=== PATIENT | male | born 1965 | race Caucasian/White ===

== ENCOUNTER → 2025-05-21 | Outpatient (CLI) | payer OTHER ==
--- NOTE | 2025-05-21 07:50 | US ---
EXAMINATION TYPE: US abdomen complete DATE OF EXAM: 05/21/2025 COMPARISON: NONE CLINICAL INDICATION: Male, 60 years old with history of B19.20 ABDOMINAL DISTENSION (GASEOUS); Abdomi nal distention with epigastric pain x 3 weeks. Daily smoker (1PPD) and drinker (3PD). Hx HTN; Patient denies any other signs, symptoms, or relevant history. TECHNIQUE: Grayscale and color Doppler imaging of the abdomen was performed. FINDINGS: EXAM MEASUREMENTS: Liver Length: 16.6 cm Gallbladder Wall: 0.3 cm CBD: 6.3 mm color Doppler imaging was utilized to isolate the common bile duct for measurement. Spleen: 13.4 cm Right Kidney: 11.3 x 4.2 x 5.4 cm Left Kidney: 11.9 x 6.1 x 5.9 cm TRAINING ADMINISTRATOR NOTES: Mild ascites seen all four quadrants Pancreas: Obscured by bowel gas Liver: Heterogeneous with nodular hepatic contour. Gallbladder: Distended with suggestion of sludge. Borderline wall thickness. Evidence for sonographic Holcomb's sign: No CBD: Borderline dilated. Spleen: Borderline enlarged. Right Kidney: wnl, No hydronephrosis, calculi or masses seen Left Kidney: wnl, No hydronephrosis, calculi or masses seen Upper IVC: Obscured by overlying bowel gas Abd Aorta: Obscured by overlying bowel gas IMPRESSION: 1. Cirrhotic morphology of the liver. Borderline splenomegaly and mild diffuse abdominal ascites sugg ests portal venous hypertension. GI referral if no established diagnosis. 2. Distended gallbladder with sludge. This may be due to fasting state. If concern for early acute ch olecystitis, HIDA scan can be considered. 3. Borderline dilated bile duct at 6.3 mm. This may be acceptable given patient's age. Correlate with alkaline phosphatase and bilirubin levels. [facility], Workstation: [id number], 05/21/2025 7:47 AM
== END | disposition home or self-care (01) ==
LOC: RADUSWWP 07:13
PROVIDERS: ATTEND Family Medicine
DX: B19.20 Unspecified viral hepatitis C without hepatic coma (principal); R14.0 Abdominal distension (gaseous); K76.89 Other specified diseases of liver; K82.8 Other specified diseases of gallbladder
CPT/HCPCS: 76700

== ENCOUNTER → 2025-05-25 | Outpatient (CLI) | payer OTHER ==
--- NOTE | 2025-05-25 14:42 | CT ---
EXAMINATION TYPE: CT abdomen w con CT DLP: 1467.8 mGycm, Automated exposure control for dose reduction was used. DATE OF EXAM: 05/25/2025 2:30 PM COMPARISON: Abdominal ultrasound 05/21/2025 CLINICAL INDICATION:Male, 60 years old with history of K74.60 UNSPECIFIED CIRRHOSIS OF LIVER; abnorma l LFT TECHNIQUE: Standard CT of the abdomen following the administration of 100 cc of Isovue 300 IV contr ast material and oral contrast. Coronal and sagittal reformats were performed. FINDINGS: LOWER CHEST: Trace left pleural effusion. Bibasilar linear scarring and/or atelectasis. Small coronar y calcifications. Small aortic valvular calcifications. Trace pericardial effusion. ABDOMEN LIVER: Cirrhotic morphology of liver with surface nodularity, widened fissures and posterior notch si gn. No focal lesion identified however arterial phase imaging was not obtained. GALLBLADDER AND BILE DUCTS: Hydropic gallbladder without wall thickening. No biliary ductal dilatatio n. PANCREAS: Unremarkable. SPLEEN: Top end normal-sized spleen measuring up to 13.8 cm in CC dimension. ADRENAL GLANDS: Unremarkable. KIDNEYS AND URETERS: No evidence of hydronephrosis or renal calculus. The kidneys enhance symmetrical ly. STOMACH AND BOWEL: Small hiatal hernia, duodenum is unremarkable. Enteric contrast reaches the mid sm all bowel. No focal bowel wall thickening or surrounding inflammatory changes. The visualized portion of the appendix is unremarkable. No evidence of bowel obstruction. PERITONEUM: No evidence of pneumoperitoneum. Moderate volume ascites throughout the abdomen. VASCULATURE: Mild atherosclerotic calcifications are present throughout the abdominal aorta and its b ranches. No evidence of aortic aneurysm. Paraesophageal varices. Perisplenic collateral vessels ident ified. Portal venous system is patent. MUSCULOSKELETAL: No acute osseous abnormalities. Grade 1 anterolisthesis of L4-L5 without evidence of pars defects. Moderate multilevel degenerative disc disease of the lower thoracic spine. LYMPH NODES: No evidence for lymphadenopathy. SOFT TISSUE/ABDOMINAL WALL: Anasarca changes around the umbilicus. IMPRESSION: 1. Hepatic cirrhosis with findings of portal hypertension including moderate volume ascites and colla teral vessels/varices. No focal hepatic lesion identified. 2. Hydropic gallbladder. 3. Trace left pleural effusion. [facility], , 05/25/2025 2:39 PM
== END | disposition home or self-care (01) ==
LOC: RADCTMAIN 13:23
PROVIDERS: ATTEND Family Medicine
DX: K74.60 Unspecified cirrhosis of liver (principal); J90 Pleural effusion, not elsewhere classified; R18.8 Other ascites
CPT/HCPCS: 74160; Q9967

== ENCOUNTER → 2025-06-11 | Outpatient (CLI) | payer OTHER ==
[2025-06-11 17:28] LABS: INR 1.7 (<1.2); Prothrombin Time 17.6 sec (10.0-12.5)
[2025-06-11 19:59] LABS: HCT 35.8 % (39.6-50.0); HGB 12.7 g/dL (13.0-17.0); MCH 35.4 pg (27.0-32.0); MCHC 35.5 g/dL (32.0-37.0); MCV 99.7 FL (80.0-97.0); NRBC Per 100 WBC 0 X 10*3/uL (0.00-0.01); Platelet Count 199 X 10*3/uL (140-440); RBC 3.59 X 10*6/uL (4.40-5.60); RDW 15.2 % (11.5-14.5); WBC 14.42 X 10*3/uL (4.50-10.00)
[2025-06-11 20:31] LABS: Basophils # (A) 0.12 X 10*3/uL (0.00-0.10); Basophils % (A) 0.8 %; Eosinophils # (A) 0.27 X 10*3/uL (0.04-0.35); Eosinophils % (A) 1.9 %; Immature Grans, Automated 0.70 %; Lymphocytes # (A) 3.41 X 10*3/uL (0.90-5.00); Lymphocytes % (A) 23.6 %; Monocytes # (A) 1.52 X 10*3/uL (0.20-1.00); Monocytes % (A) 10.5 %; Neutrophils # (A) 9.00 X 10*3/uL (1.80-7.70); Neutrophils % (A) 62.5 %
[2025-06-11 20:41] LABS: ALT 34 U/L (10-49); AST 71 U/L (14-35); Albumin 3.1 g/dL (3.8-4.9); Albumin/Globulin Ratio 0.72 Ratio (1.60-3.17); Alkaline Phosphatase 87 U/L (41-126); Anion Gap 14.00 mmol/L (4.00-12.00); BUN/Creat Ratio 11.00 Ratio (12.00-20.00); Blood Urea Nitrogen 11.0 mg/dL (9.0-27.0); Calcium 8.3 mg/dL (8.7-10.3); Carbon Dioxide 23.0 mmol/L (21.6-31.8); Chloride 100 mmol/L (96-109); Globulin 4.3 g/dL (1.6-3.3); Glucose 114 mg/dL (70-110); Potassium 3.6 mmol/L (3.5-5.5); Sodium 137 mmol/L (135-145); Total Protein 7.4 g/dL (6.2-8.2)
== END | disposition home or self-care (01) ==
LOC: LABWHC1 16:11
PROVIDERS: ATTEND Internal Medicine Gastroenterology
DX: B18.2 Chronic viral hepatitis C (principal)
CPT/HCPCS: 36415; 80053; 82105; 85025; 85610